=== PATIENT | female | born 1990 | race African-American/Black ===

== ENCOUNTER 2024-09-05 07:12 | Emergency (ER) | payer BC ==
[~2024-09-05] VITALS: Ht 185.4 cm; Wt 117.9 kg
[2024-09-05 09:11] LABS: PREGNANCY TEST URINE QUAL NEGATIVE (NEGATIVE)
[2024-09-05] MEDS ORDERED: ACETAMINOPHEN ES 500 MG TABLET ONE (09:27)
[2024-09-05] MEDS ORDERED: LIDOCAINE 5% (PATCH) 1 EA PATCH TP ONE (09:27)
[2024-09-05] MEDS: LIDOCAINE 5% (PATCH) 1 EA PATCH TP ONE (09:33)
[2024-09-05] MEDS: ACETAMINOPHEN 325 MG TABLET PO ONE (09:33)
[2024-09-05] MEDS ORDERED: APIX5TAB4 PO (09:56)
[2024-09-05 10:47] LABS: BASOPHILS % (AUTO) 0.3 % (0.0-2.0); EOSINOPHILS % (AUTO) 0.3 % (0.0-6.0); HEMATOCRIT 37 % (33-45); HEMOGLOBIN 12.1 g/dL (11.5-14.8); LYMPHOCYTES # (AUTO) 1.2 K/uL (0.8-4.8); LYMPHOCYTES % (AUTO) 20.6 % (20.0-44.0); MEAN CORPUSCULAR HEMOGLOBIN 28 PG (26.0-33.0); MEAN CORPUSCULAR HGB CONC 33 g/dl (31.0-36.0); MEAN CORPUSCULAR VOLUME 83 fL (82-100); MONOCYTES # (AUTO) 0.4 K/uL (0.1-1.30); MONOCYTES % (AUTO) 5.9 % (2.0-12.0); NEUTROPHILS # (AUTO) 4.3 K/uL (1.8-8.9); NEUTROPHILS % (AUTO) 72.9 % (43.0-81.0); PLATELET COUNT (AUTO) 344 K/uL (150-450); RED BLOOD CELL COUNT(AUTO) 4.39 MIL/uL (4.0-5.2); RED CELL DISTRIBUTION WIDTH 16.5 % (11.5-15.0)
[2024-09-05 10:50] VITALS: BP 143/88; TEMP 98.2; O2SAT 100
[2024-09-05 11:03] LABS: CALCIUM, SERUM 8.3 mg/dL (8.5-10.1); CREATININE 0.7 mg/dL (0.6-1.3); POTASSIUM 4.3 mmol/L (3.5-5.1)
== END 2024-09-05 10:50 | disposition left against medical advice (07) ==
LOC: ER 07:22
DX: I82.442 Acute embolism and thrombosis of left tibial vein (principal); M25.572 Pain in left ankle and joints of left foot; Z88.8 Allergy status to other drugs, medicaments and biological substances
CPT/HCPCS: 36415; 73610-TC; 73630-TC; 80048-TC; 84703-TC; 85025-TC; 93971-TC